=== PATIENT | male | born 1955 | race Caucasian/White ===

== ENCOUNTER 2019-07-19 13:34 | Emergency (ER) | payer SELFPAY ==
[~2019-07-19] VITALS: Ht 188 cm; Wt 99.8 kg
[2019-07-19 13:38] VITALS: Ht 188 cm; Wt 99.8 kg
[2019-07-19 18:41] VITALS: BP 140/79
== END 2019-07-19 18:41 | disposition home or self-care (01) ==
LOC: ED 13:34
DX: M16.11 Unilateral primary osteoarthritis, right hip (principal); M19.90 Unspecified osteoarthritis, unspecified site; M43.10 Spondylolisthesis, site unspecified; M54.5 Low back pain; F17.210 Nicotine dependence, cigarettes, uncomplicated; Z71.6 Tobacco abuse counseling; Z88.0 Allergy status to penicillin; W18.30XA Fall on same level, unspecified, initial encounter; Y93.89 Activity, other specified; Y92.89 Other specified places as the place of occurrence of the external cause; Y99.8 Other external cause status
CPT/HCPCS: 99406; J1100; J1885